=== PATIENT | female | born 1975 ===

== ENCOUNTER 2021-01-21 19:46 | Emergency (ER) | payer SELFPAY ==
[~2021-01-21] VITALS: Ht 152.4 cm; Wt 60.8 kg
[2021-01-21 20:04] VITALS: BP 140/95
--- NOTE | 2021-01-21 20:07 | NUR ---
TO LOBBY A/W BED AMBULATORY
--- NOTE | 2021-01-21 20:20 | NUR ---
SEEN AND EXAMINED BY PIERCE
--- NOTE | 2021-01-21 20:25 | NUR ---
MEDICATED PER [facility] ORDER, TOLERATED WELL.
[2021-01-21] MEDS: ACETAMINOPHEN EXTRA STRENGTH 500 MG TAB PO ONE (20:51)
--- NOTE | 2021-01-21 20:51 | NUR ---
RESULT BACK AND NOTED BY ERMRyley
[2021-01-21] MEDS ORDERED: BACL10TA4 PO (21:14)
[2021-01-21] MEDS ORDERED: ACET-10509 PO (21:14)
[2021-01-21 21:24] VITALS: BP 122/78
--- NOTE | 2021-01-21 21:24 | NUR ---
Patient discharged with v/s stable. Written and verbal after care instructions given and explained. Patient alert, oriented and verbalized understanding of instructions. Ambulatory with steady gait. All questions addressed prior to discharge. ID band removed. Patient advised to follow up with PMD. Rx of TYLENOL, BACLOFEN given. Patient educated on indication of medication including possible reaction and side effects. Opportunity to ask questions provided and answered.
== END 2021-01-21 21:24 | disposition home or self-care (01) ==
LOC: MED 19:46
DX: S13.4XXA Sprain of ligaments of cervical spine, initial encounter (principal); V98.8XXA Other specified transport accidents, initial encounter; Y93.89 Activity, other specified; Y92.89 Other specified places as the place of occurrence of the external cause; Y99.8 Other external cause status
CPT/HCPCS: 72050; 99283